=== PATIENT | female | born 1960 | race Caucasian/White ===

== ENCOUNTER 2021-09-08 12:52 | Inpatient (IN) | payer MEDICAID ==
[~2021-09-08] VITALS: Ht 165.1 cm; Wt 64.9 kg
[2021-09-08] MEDS: POTASSIUM CL. PREMIX PERIPHER. 50 ML IV SCH ×3 (02:35→23:43)
--- NOTE | 2021-09-08 12:52 | NUR ---
BIBS C/O OF RIGHT FOOT PAIN 10/10 ON PS. PT R FOOT IS SWOLLEN AND RED WITH A WATER BLISTER ON THE RIGHT SIDE. PT STATED SHE STEPED ON BROKEN GLASS X4DAYS AGO. PT VITALS ARE WITHIN NORMAL LIMITS. BREATHING IS REGULAR AND UNLABORED. PT ATTACHED TO INTERMODAL OWNER OPERATOR TRUCK DRIVER AND PULSE OX.
--- NOTE | 2021-09-08 13:41 | NUR ---
URINE SAMPLE COLLECTED AND SENT TO LAB
--- NOTE | 2021-09-08 13:49 | NUR ---
X RAY AT BEDSIDE
--- NOTE | 2021-09-08 13:49 | NUR ---
R HAND #22G S/L; PATENT AND INTACT. SWITCH CREW SUPERVISOR AT PT'S BEDSIDE
[2021-09-08 13:58] LABS: BILIRUBIN,URINE Negative (NEGATIVE); COLOR,URINE YELLOW (YELLOW); LEUKOCYTE ESTERASE ,URINE Negative (NEGATIVE); NITRITE, URINE Negative (NEGATIVE); PROTEIN,URINE Negative (NEGATIVE); UGLUCOSE Negative (NEGATIVE); UROBILINOGEN,URINE 0.2 EU/dL (0.2)
[2021-09-08 14:08] LABS: BACTERIA,URINE Rare /HPF (None Seen); RBC,URINE NONE SEEN /HPF (0-2); SQUAMOUS EPITHELIAL CELL,UR Few /HPF (None Seen); WBC,URINE NONE SEEN /HPF (0-3)
[2021-09-08 14:17] LABS: BASOPHILS # (AUTO) 0.1 K/uL (0.0-0.2); BASOPHILS % (AUTO) 1.3 % (0.0-2.0); EOSINOPHILS % (AUTO) 3.5 % (0.0-6.0); HEMATOCRIT 33 % (33-45); HEMOGLOBIN 11.5 g/dL (11.5-14.8); LYMPHOCYTES # (AUTO) 2.1 K/uL (0.8-4.8); LYMPHOCYTES % (AUTO) 24.4 % (20.0-44.0); MEAN CORPUSCULAR HGB CONC 34 g/dl (31.0-36.0); MEAN CORPUSCULAR VOLUME 87 fL (82-100); MONOCYTES # (AUTO) 0.9 K/uL (0.1-1.30); MONOCYTES % (AUTO) 10.1 % (2.0-12.0); NEUTROPHILS # (AUTO) 5.1 K/uL (1.8-8.9); NEUTROPHILS % (AUTO) 60.7 % (43.0-81.0); PLATELET COUNT (AUTO) 295 K/uL (150-450); RED BLOOD CELL COUNT(AUTO) 3.82 MIL/uL (4.0-5.2); WHITE BLOOD COUNT (AUTO) 8.5 K/uL (4.3-11.0)
[2021-09-08 14:30] LABS: CALCIUM, SERUM 8.8 mg/dL (8.5-10.1); CARBON DIOXIDE 27 mmol/L (21-32); CHLORIDE 102 mmol/L (98-107); CREATININE 0.6 mg/dL (0.6-1.3); GLUCOSE 89 mg/dL (74-106); POTASSIUM 2.9 mmol/L (3.5-5.1); SODIUM SERUM 139 mmol/L (136-145); UREA NITROGEN, BLOOD 10 mg/dL (7-18)
[2021-09-08 14:37] LABS: ALANINE AMINOTRANSFERASE 34 U/L (12-78); ALBUMIN 3.5 g/dL (3.4-5.0); ALKALINE PHOSPHATASE 72 U/L (46-116); ASPARTATE AMINOTRANSFERASE 33 U/L (15-37); BILIRUBIN,DIRECT 0.1 mg/dL (0.0-0.2); BILIRUBIN,TOTAL 0.3 mg/dL (0.2-1.0); TOTAL PROTEIN, SERUM 6.8 g/dL (6.4-8.2)
[2021-09-08] MEDS ORDERED: MORPHINE SULFATE INJ 4 MG/ML DISP.SYRIN ONE (14:59)
[2021-09-08] MEDS ORDERED: VANCOMYCIN 1 GM in IV D5W 250 ML IV ONE (15:00)
[2021-09-08] MEDS ORDERED: MORPHINE SULFATE INJ 2 MG/ML DISP.SYRIN IV ONE (15:00)
[2021-09-08] MEDS ORDERED: PIPERACILLIN /TAZOBACTAM 3.375 G in IV D5W 50 ML IV ONE (15:00)
[2021-09-08] MEDS ORDERED: CEFTRIAXONE 1 G in IV D5W 50 ML IV ONE (16:00)
[2021-09-08] MEDS ORDERED: MAGNESIUM HYDROXIDE 30 ML UDC PO PRN (16:30)
[2021-09-08] MEDS ORDERED: CEFTRIAXONE 1 G in IV D5W 50 ML IV SCH (16:30)
[2021-09-08] MEDS ORDERED: ONDANSETRON HCL/PF 4 MG/2 ML VIAL IVP PRN (16:30)
[2021-09-08] MEDS ORDERED: MAG HYDROX/AL HYDROX/SIMETH 30 ML UDC PO PRN (16:30)
[2021-09-08] MEDS ORDERED: ACETAMINOPHEN 325 MG TABLET PO PRN (16:30)
[2021-09-08] MEDS ORDERED: Z GUARD REMEDY 2 OZ OINT TP PRN (16:30)
--- NOTE | 2021-09-08 16:43 | NUR ---
NEW LINE ESTABLISHED 20G L FOOT AND CONVERSTED TO A SALINE LOCK
--- NOTE | 2021-09-08 16:45 | NUR ---
CALLED NURSING ZIG ZAG SPRING MACHINE OPERATOR FOR MIDLINE
--- NOTE | 2021-09-08 17:10 | NUR ---
MARITZA LindseyREPLACED BY [facility])
[2021-09-08] MEDS ORDERED: HYDROCODONE/APAP 5/325MG TABLET ONE ×2 (18:03→21:35)
[2021-09-08] MEDS ORDERED: ONDANSETRON HCL/PF 4 MG/2 ML VIAL ONE ×2 (18:11→21:42)
--- NOTE | 2021-09-08 18:11 | NUR ---
FOOD TRAY PROVIDED
--- NOTE | 2021-09-08 18:28 | NUR ---
Dav peraza in [facility] - 09/08/21 at 1857 by KERLINE TORSTEN GRANDE AT PT BEDSIDE
[2021-09-08] MEDS ORDERED: MORPHINE SULFATE INJ 2 MG/ML DISP.SYRIN IVP ONE (18:30)
--- NOTE | 2021-09-08 18:30 | NUR ---
NEW ORDERS PER FACILITY MAINTENANCE WORKER WILSETIN: URINE DRUG AND MORPHINE 1 MG IV PUSH ONCE. THE ORDERS ARE READ BACK, VERIFIED. NOTED AND CARRIED OUT.
[2021-09-08] MEDS ORDERED: MORPHINE SULFATE INJ 2 MG/ML DISP.SYRIN ONE (18:32)
--- NOTE | 2021-09-08 18:34 | NUR ---
TORSTEN GRANDE AT PT BEDSIDE
--- NOTE | 2021-09-08 18:59 | NUR ---
PT IS SLEEPING COMFORTABLY. VITALS WITHIN NORMAL LIMITS. BREATHING REGULAR AND UNLABORED.
--- NOTE | 2021-09-08 19:51 | NUR ---
PT PROVIDED BEDPAN
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
--- NOTE | 2021-09-08 22:25 | NUR ---
PT POWER OF RETAIL MANAGEMENT TRAINEE, DANETTE SALAS /
--- NOTE | 2021-09-08 23:04 | NUR ---
JOSE G , MIDLINE NURSE, AT BED SIDE FOR MID LINE INSERTION
--- NOTE | 2021-09-08 23:17 | NUR ---
MIDLINE ESTABLISHED RIGHT UPPER ARM.
--- NOTE | 2021-09-08 23:17 | NUR ---
Dav peraza in ED[facility] - 09/09/21 at 0033 by DESTINYO MIDLINE ESTABLISHED RIGHT UPPER ARM. POSTASSIUM CHLORIDE 10MEQ/50ML WAS GIVEN. MEDICAITON DELAYED DUE TO IV ACCESS
[2021-09-08] MEDS ORDERED: POTASSIUM CL. PREMIX PERIPHER. 50 ML ONE (23:25)
[2021-09-08] MEDS: HYDROCODONE/APAP 5/325MG TABLET PO PRN (23:45)
[2021-09-09] MEDS ORDERED: ACETAMINOPHEN 325 MG TABLET ONE (00:36)
[2021-09-09] MEDS ORDERED: MAG HYDROX/AL HYDROX/SIMETH 30 ML UDC ONE (00:43)
[2021-09-09] MEDS: IV NS 0.9% 1,000 ML IV PRN ×2 (00:45→06:13)
--- NOTE | 2021-09-09 00:45 | NUR ---
PT PROVIDED SHAZIAADRIA
[2021-09-09] MEDS ORDERED: MAGNESIUM HYDROXIDE 30 ML UDC ONE (00:53)
[2021-09-09] MEDS ORDERED: PANTOPRAZOLE 40 MG TABLET.DR PO ONE (00:54)
--- NOTE | 2021-09-09 01:04 | NUR ---
PT IS SLEEPING COMFORTABLY. BREATHING IS REGULAR AND UNLABORED. VITALS ARE WITHIN NORMAL LIMITS.
[2021-09-09] MEDS ORDERED: POTASSIUM CL. PREMIX PERIPHER. 50 ML ONE (01:13)
[2021-09-09] MEDS: POTASSIUM CL. PREMIX PERIPHER. 50 ML IV SCH (01:33)
[2021-09-09] MEDS ORDERED: POTASSIUM CL. PREMIX PERIPHER. 100 ML ONE (01:37)
[2021-09-09] MEDS ORDERED: METOCLOPRAMIDE HCL 10 MG/2 ML VIAL IV SCH (03:00)
[2021-09-09] MEDS ORDERED: VANCOMYCIN 1 GM VIAL ONE (03:08)
[2021-09-09] MEDS: VANCOMYCIN 1 GM in IV D5W 250 ML IV SCH ×2 (03:12→15:16)
--- NOTE | 2021-09-09 03:23 | NUR ---
REPORT GIVEN TO SARITA SIMON FOR BRIANNE BY SARITA ARREDONDO FOR BRIANNE.
[2021-09-09 03:28] VITALS: BP 113/77
--- NOTE | 2021-09-09 03:28 | NUR ---
PT IS BEING TRANSPORTED TO UNIT ON GURNEY WITH EMT AT BEDSIDE W/ ACLS PROTOCOL. NAD NOTED DURING TRANSPORT
--- NOTE | 2021-09-09 03:33 | NUR ---
PT WAS TRANSFERRED TO 320 IN STABLE CONDITION
[2021-09-09] MEDS: MORPHINE SULFATE INJ 2 MG/ML DISP.SYRIN IV PRN ×5 (03:59→20:41)
--- NOTE | 2021-09-09 03:59 | NUR ---
PT C/O 10/10 PAIN ON HER RIGHT FOOT. PER PT REQUEST MORPHINE 2MG/1ML Q4HR PRN ADMINISTERED AT THIS TIME PER ORDER. WILL CONTINUE TO MONITOR.
--- NOTE | 2021-09-09 06:30 | NUR ---
MS RN CLOSING NOTE PT REMAINED STABLE THROUGHOUT SHIFT. WILL ENDORSE TO ONCOMING RN FOR BRIANNE.
[2021-09-09 06:49] LABS: BASOPHILS # (AUTO) 0.1 K/uL (0.0-0.2); BASOPHILS % (AUTO) 1.3 % (0.0-2.0); EOSINOPHILS % (AUTO) 5.3 % (0.0-6.0); HEMATOCRIT 33 % (33-45); HEMOGLOBIN 11.4 g/dL (11.5-14.8); LYMPHOCYTES # (AUTO) 2.1 K/uL (0.8-4.8); MEAN CORPUSCULAR HGB CONC 35 g/dl (31.0-36.0); MEAN CORPUSCULAR VOLUME 87 fL (82-100); MONOCYTES # (AUTO) 0.6 K/uL (0.1-1.30); MONOCYTES % (AUTO) 8.4 % (2.0-12.0); NEUTROPHILS # (AUTO) 3.9 K/uL (1.8-8.9); PLATELET COUNT (AUTO) 296 K/uL (150-450); RED BLOOD CELL COUNT(AUTO) 3.78 MIL/uL (4.0-5.2); WHITE BLOOD COUNT (AUTO) 7.1 K/uL (4.3-11.0)
[2021-09-09 07:20] LABS: CALCIUM, SERUM 8.2 mg/dL (8.5-10.1); CREATININE 0.7 mg/dL (0.6-1.3); MAGNESIUM 2.6 mg/dL (1.8-2.4); PHOSPHORUS 2.9 mg/dL (2.5-4.9); POTASSIUM 3.2 mmol/L (3.5-5.1)
--- NOTE | 2021-09-09 07:25 | NUR ---
MS RN OPENING NOTES RECEIVED PATIENT IN BED, AWAKE, A/O X4, NOT IN ANY RESPIRATORY DISTRESS. PATIENT IS ASKING FOR HER NEXT PAIN MEDICATION DUE. EXPLAINED THE FREQUENCY AND THE SCALE OF HER PAIN,VERBALIZED UNDERSTANDING. MIDLINE ON THE BARBARA #22 WITH ON GOING NS AT 50ML/HR.,TOLERATED WELL. SAFETY MEASURES ENFORCED:REMINDED TO ALWAYS CALL FOR ASSISTANCE, BED LOCKED AND ON ITS LOWEST POSITION,SIDE RAILS UP X2 AND CALL LIGHT WITHIN REACH. WILL CONTINUE TO MONITOR.
[2021-09-09 07:52] LABS: THYROID STIMULATING HORMONE 2.441 uIU/mL (0.358-3.74)
[2021-09-09] MEDS: PANTOPRAZOLE 40 MG TABLET.DR PO SCH (08:16)
[2021-09-09 08:21] VITALS: BP 120/65
[2021-09-09] MEDS ORDERED: [UNRECOGNIZED DRUG - CODE] PO (09:04)
[2021-09-09] MEDS ORDERED: AMLO-212 PO (09:04)
[2021-09-09] MEDS ORDERED: DIAZ5TAB PO (09:04)
[2021-09-09] MEDS ORDERED: TEMA22.53 PO (09:04)
[2021-09-09] MEDS ORDERED: FURO-145 PO (09:04)
[2021-09-09] MEDS ORDERED: ASPI-1169 PO (09:04)
[2021-09-09] MEDS ORDERED: MULT-447 PO (09:04)
[2021-09-09] MEDS: POTASSIUM CHLORIDE 20 MEQ TAB.PRT.SR PO SCH ×2 (12:28→12:45)
--- NOTE | 2021-09-09 12:40 | NUR ---
RN NOTES MORPHINE SULFATE 2MG/ML GIVEN AT THIS TIME BUT UNABLE TO SAVE IN THE EMAR,CHARGE NURSE ASHLEY WAS AT MY SIDE WHO WITNESSED WHEN I GAVE THE MEDICATION.
[2021-09-09 16:27] VITALS: BP 125/81
--- NOTE | 2021-09-09 19:00 | NUR ---
MS RN OPENING NOTE RECEIVED PT AWAKE IN BED. A/OX4. NO SOB NOTED. NO S/S RESPIRATORY DISTRESS. PT IS AMBULATORY. PT HAS NO C/O PAIN AT THIS TIME. IV ACCESS IN RIGHT UPPER ARM MIDLINE, INFUSING NS @ 50ML/HR. IV IS INTACT, PATENT, AND FLUSHING WELL. SAFETY MEASURES MAINTAINED . BED IN LOWEST LOCKED POSITION, HOB ELEVATED, SIDE RAILS UP X2. CALL LIGHT AND TABLE WITHIN REACH. WILL CONTINUE WITH PLAN OF CARE.
--- NOTE | 2021-09-09 19:42 | NUR ---
MS RN CLOSING NOTES PATIENT IN BED, AWAKE, A/O X4, NOT IN ANY RESPIRATORY DISTRESS WITH EPISODES OF ANXIETY REGARDING HER PAIN MEDICATION. MIDLINE ON THE BARBARA #22 WITH ON GOING NS AT 50ML/HR.,TOLERATED WELL. SCHEDULED FOR WOUND DEBRIDEMENT TOMORROW WITH NPO ORDERED AFTER MIDNIGHT.PATIENT MADE AWARE.SAFETY MEASURES ENFORCED:REMINDED TO ALWAYS CALL FOR ASSISTANCE, BED LOCKED AND ON ITS LOWEST POSITION,SIDE RAILS UP X2 AND CALL LIGHT WITHIN REACH. WILL ENDORSE TO THE INCOMING SHIFT.
[2021-09-09 20:00] VITALS: BP 131/88
--- NOTE | 2021-09-09 20:41 | NUR ---
PT C/O 9/10 PAIN ON HER RIGHT FOOT. PER PT REQUEST MORPHINE 2MG/1ML Q4HR PRN ADMINISTERED AT THIS TIME PER ORDER. WILL CONTINUE TO MONITOR.
[2021-09-09] MEDS ORDERED: CEFTRIAXONE 1 G VIAL ONE ×2 (21:22→21:25)
[2021-09-09] MEDS: CEFTRIAXONE 2 G in IV D5W 100 ML IV SCH (21:40)
[2021-09-10] MEDS: MORPHINE SULFATE INJ 2 MG/ML DISP.SYRIN IV PRN ×6 (00:59→22:08)
--- NOTE | 2021-09-10 00:59 | NUR ---
PT C/O 9/10 PAIN ON HER RIGHT FOOT. PER PT REQUEST MORPHINE 2MG/1ML Q4HR PRN ADMINISTERED AT THIS TIME PER ORDER. WILL CONTINUE TO MONITOR.
[2021-09-10] MEDS: VANCOMYCIN 1 GM in IV D5W 250 ML IV SCH ×3 (03:14→15:21)
--- NOTE | 2021-09-10 05:30 | NUR ---
PT C/O 9/10 PAIN ON HER RIGHT FOOT. PER PT REQUEST MORPHINE 2MG/1ML Q4HR PRN ADMINISTERED AT THIS TIME PER ORDER. WILL CONTINUE TO MONITOR.
--- NOTE | 2021-09-10 06:30 | NUR ---
MS RN CLOSING NOTE PT REMAINED STABLE THROUGHOUT SHIFT. WILL ENDORSE TO ONCOMING NURSE FOR BRIANNE.
[2021-09-10] MEDS ORDERED: ANESTHESIA TRAY IN PYXIS 1 EA TRAY MC ONE (06:58)
[2021-09-10] MEDS ORDERED: BUPIVACAINE MPF W/EPI 0.25% 30 ML VIAL ONE (06:59)
[2021-09-10] MEDS ORDERED: FENTANYL PF 100MCG/2ML AMPUL ONE ×2 (07:05→08:43)
--- NOTE | 2021-09-10 07:05 | NUR ---
MS RN OPENING NOTE RECEIVED PT AWAKE IN BED. PATIENT IS A/OX4. PATIENT IS BREATHING EVENLY AND NONLABORED ON ROOM AIR. NO SOB NOTED. NO S/S RESPIRATORY DISTRESS. PT HAS NO C/O PAIN AT THIS TIME. IV ACCESS IN RIGHT UPPER ARM MIDLINE, INFUSING NS @ 50ML/HR. IV IS INTACT, PATENT, AND FLUSHING WELL. PATIENT IS LEAVING FOR PROCEDURE. SAFETY MEASURES MAINTAINED . BED IN LOWEST LOCKED POSITION, HOB ELEVATED, SIDE RAILS UP X2. CALL LIGHT AND TABLE WITHIN REACH. WILL CONTINUE TO MONITOR
[2021-09-10] MEDS ORDERED: MIDAZOLAM HCL 2 MG/2ML VIAL ONE (07:14)
[2021-09-10] MEDS: PANTOPRAZOLE 40 MG TABLET.DR PO SCH (07:22)
[2021-09-10 07:37] LABS: BASOPHILS # (AUTO) 0.1 K/uL (0.0-0.2); EOSINOPHILS % (AUTO) 4.2 % (0.0-6.0); HEMATOCRIT 32 % (33-45); HEMOGLOBIN 11.1 g/dL (11.5-14.8); LYMPHOCYTES # (AUTO) 2.2 K/uL (0.8-4.8); LYMPHOCYTES % (AUTO) 30.5 % (20.0-44.0); MEAN CORPUSCULAR HGB CONC 35 g/dl (31.0-36.0); MEAN CORPUSCULAR VOLUME 87 fL (82-100); MONOCYTES # (AUTO) 0.7 K/uL (0.1-1.30); MONOCYTES % (AUTO) 9.7 % (2.0-12.0); NEUTROPHILS % (AUTO) 54.6 % (43.0-81.0); PLATELET COUNT (AUTO) 271 K/uL (150-450); RED BLOOD CELL COUNT(AUTO) 3.69 MIL/uL (4.0-5.2); WHITE BLOOD COUNT (AUTO) 7.4 K/uL (4.3-11.0)
--- NOTE | 2021-09-10 07:55 | NUR ---
WOUND CARE CONSULT: RECEIVED CONSULT FOR RT FOOT. PT IN O.R. AT THIS TIME AND IS FOLLOWED BY DIGITAL ASSET MANAGER. WILL SEE PRN.
[2021-09-10 08:17] LABS: CALCIUM, SERUM 8.4 mg/dL (8.5-10.1); CREATININE 0.6 mg/dL (0.6-1.3); MAGNESIUM 2.4 mg/dL (1.8-2.4); PHOSPHORUS 2.8 mg/dL (2.5-4.9); POTASSIUM 4.2 mmol/L (3.5-5.1)
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
[2021-09-10] MEDS ORDERED: LIDOCAINE 0.5% HCL 50 ML VIAL ONE (08:47)
--- NOTE | 2021-09-10 09:24 | NUR ---
RN NOTE RECEIVED PATIENT BACK FROM PROCEDURE. DRESSING C/D/I. VITALS BP 133/78, HR 67, TEMP 97.7, RR 18 O2 97% ON ROOM AIR. PATIENT DENIES PAIN OR DISCOMFORT IN HAPPY SPIRITS. WILL CONTINUE TO MONITOR
--- NOTE | 2021-09-10 10:51 | NUR ---
RN NOTE PATIENT HAVING ANXIETY, COMPLAINING OF ANXIOUS FEELINGS, MD NOTIFIED TO GIVE ATIVAN 2MG X1 PO AND FOLLOW UP WITH DR RIDLEY., WILL NOTIFY .
[2021-09-10] MEDS ORDERED: LORAZEPAM 1 MG TABLET PO ONE (11:00)
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
--- NOTE | 2021-09-10 12:26 | NUR ---
RN NOTE PATIENT NOTED TO BE OUT OF BED, EXPLAINED TO PATIENT TO STAY IN BED, PATIENT NONCOMPLIANT. CONTINUES TO GET OOB UNASSISTED. PATIENT ASKED FOR PRN MEDICATION WILL GIVE MEDICATION ORDERED.
[2021-09-10] MEDS: HYDROCODONE/APAP 5/325MG TABLET PO PRN ×3 (12:29→20:46)
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
--- NOTE | 2021-09-10 14:18 | NUR ---
RN NOTE PATIENT NONCOMPLIANT WITH NONWEIGHT BEARING STATUS,
[2021-09-10 16:00] VITALS: BP 141/84
--- NOTE | 2021-09-10 16:06 | NUR ---
RN NOTE RECEIVED CALL FROM LAB, PATIENT HAS POSITIVE MRSA MD TO MADE AWARE WITH NEW ORDER FOR BACTROBAN. WILL CONTINUE TO MONITOR
--- NOTE | 2021-09-10 17:16 | NUR ---
RN NOTE PATIENT ASKING FOR HER PHONE TO BE CHARGED, COULD NOT FIND SERVICE UNIT OPERATOR, 2 RNS PRESENT TO GO THROUGH BELONGINGS, FOUND THE METAL DINNER TRAY WRAPPED IN CLOTHING, REMOVED ITEM AND GAVE BACK TO KITCHEN SHE ASKED TO SPEAK WITH CHARGE NURSE. CHARGE CAME AND EXPLAINED SAFETY CONCERNS. PATIENT VERBALIZED UNDERSTANDING AND STARTED TO DISCUSS [facility]. PATIENT CONTINUES TO BE NONCOMPLIANT ON STAYING IN BED AND OTHER CARE CONCERNS.
--- NOTE | 2021-09-10 17:25 | NUR ---
RN NOTE PATIENT SCREAMING IN HALLWAY ASKED WHAT SHE NEEDED, SCREAMED NOTHING AND THAT NO ONE SHOULD COME TO HER ROOM BUT DOCTORS, CHARGE AWARE, WILL CONTINUE TO MONITOR
[2021-09-10] MEDS ORDERED: OLANZAPINE 10 MG VIAL IM PRN (17:30)
--- NOTE | 2021-09-10 17:30 | NUR ---
RN NOTE MD NOTIFIED OF BEHAVIOR ORDERED ZYPREXA 5MG IM PRN FOR SEVERE AGITATION
--- NOTE | 2021-09-10 18:23 | NUR ---
MS RN CLOSING NOTE PT AWAKE IN BED. PATIENT IS A/OX4. PATIENT IS BREATHING EVENLY AND NONLABORED ON ROOM AIR. NO SOB NOTED. NO S/S RESPIRATORY DISTRESS. PT HAS NO C/O PAIN AT THIS TIME, BUT COMPLAINED OF SEVERE RIGHT FOOT PAIN DURING SHIFT, PRN MEDICATION GIVEN ORDERED, VITALS MAINTAINED WNL. IV ACCESS IN RIGHT UPPER ARM MIDLINE, INFUSING NS @ 50ML/HR. IV IS INTACT, PATENT, AND FLUSHING WELL. PATIENT HAS BEEN AGGRESSIVE AND NONCOMPLIANT THROUGHOUT SHIFT, DOES NOT USE CALL LIGHT GETS UP EVEN THOUGH REMINDED TO USE CALL LIGHT AND THAT IT IS UNSAFE TO PLACE WEIGHT ON FOOT POST PROCEDURE. MD AWARE, CHARGE NOTIFIED. ALL MEDICATIONS WERE GIVEN ORDERED. SAFETY MEASURES MAINTAINED . BED IN LOWEST LOCKED POSITION, HOB ELEVATED, SIDE RAILS UP X2. CALL LIGHT AND TABLE WITHIN REACH. WILL ENDORSE TO ONCOMING SHIFT
--- NOTE | 2021-09-10 19:00 | NUR ---
MS RN OPENING NOTE RECEIVED PT AWAKE IN BED. A/OX4. NO SOB NOTED. NO S/S RESPIRATORY DISTRESS. PT IS BEDREST. PT HAS NO C/O PAIN AT THIS TIME. IV ACCESS IN RIGHT UPPER ARM MIDLINE. IV IS INTACT, PATENT, AND FLUSHING WELL. SAFETY MEASURES MAINTAINED . BED IN LOWEST LOCKED POSITION, HOB ELEVATED, SIDE RAILS UP X2. CALL LIGHT AND TABLE WITHIN REACH. WILL CONTINUE WITH PLAN OF CARE.
[2021-09-10 20:00] VITALS: BP 147/73
--- NOTE | 2021-09-10 20:46 | NUR ---
PT C/O 9/10 PAIN ON HER RIGHT FOOT. PER PT REQUEST NORCO 5-325MG 1 TAB PO Q4HR PRN ADMINISTERED AT THIS TIME PER ORDER. WILL CONTINUE TO MONITOR.
[2021-09-10] MEDS: LORAZEPAM 0.5 MG TABLET PO PRN (21:51)
--- NOTE | 2021-09-10 21:51 | NUR ---
PT EXTREMELY ANXIOUS, YELLING AND WALKING AROUND THE HALLWAY, PER NURSING ASSESSMENT. PT REQUESTED MEDICATION FOR ANXIETY. ATIVAN 0.5MG I TAB PO Q6HR PRN ADMINISTERED AT THIS TIME FOR ANXIETY. WILL CONTINUE TO MONITOR
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
[2021-09-10] MEDS: MUPIROCIN OINT 2% 22 GM TUBE NS SCH (21:57)
[2021-09-10] MEDS: CEFTRIAXONE 2 G in IV D5W 100 ML IV SCH (21:57)
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
--- NOTE | 2021-09-10 23:00 | NUR ---
PT IS UNCOOPERATIVE, RUE, YELLING AND DEMANDING FOR PAIN MEDICATION. TALKED CALMLY TO THE PT BUT SHE IS UNCOOPERATIVE,AND THREATENING TO CALL THE MINK FARMER. EXPLAINED TO THE PT ON THE RISKS OF WALKING AROUND AFTER SURGERY. THE RIGHT LEG IS SWOLLEN AND NEEDS TO BE ELEVATED BUT PT REMAINS UNCOOPERATIVE. CHARGE NURSE, ESTELA MADE AWARE, SHE EXPLAINED THE IMPORTANCE OF ELEVATING THE LEGS BUT PT REMAINED UNCOOPERATIVE.
--- NOTE | 2021-09-11 01:30 | NUR ---
PT IN THE NURSES STATION DEMANDING FOR BOTH NORCO AND MORPHINE AT THE SAME TIME. CHARGE NURSE ESTELA AND I EXPLAINED TO HER THAT SHE CANNOT HAVE BOTH AT THE SAME TIME, IT WOULD BE ALTERNATED WHEN THE TIME FOR EACH MEDICATION IS DUE BUT PT KEPT INSISTING, YELLING AND THREATENING TO CALL 911.
--- NOTE | 2021-09-11 01:50 | NUR ---
PT COMPLAINED THAT HER MARIJUANA STICK WAS MISSING. ASKED HER IF SHE HAS MARIJUANA SHE ADMITTED TO HAVING MARIJUANA STATING THAT IT IS LEGAL. I ADVISED HER THAT IT IS NOT ACCEPTABLE TO BE USED IN THE HOSPITAL, COLLECTED THE MARIJUANA WHICH WAS KEPT IN A SMALL BOWL OF POWDERED TURMERIC. BAGGED THE MARIJUANA AND PRESENTED TO THE CHARGE NURSE, ESTELA. WILL CONTINUE WITH PLAN OF CARE.
[2021-09-11] MEDS: MORPHINE SULFATE INJ 2 MG/ML DISP.SYRIN IV PRN ×6 (02:15→21:14)
--- NOTE | 2021-09-11 02:15 | NUR ---
TWO CHAR CONVEYOR TENDER WALKED INTO THE ROOM WHILE I WAS ADMINISTERING MORPHINE TO THE PT. PT WAS LEFT ALONE WITH THE 2 POLICE OFFICERS. CHARGE NURSE AND, ESTELA AND NURSING BATH MIX OPERATOR, TEMO IRVING.
--- NOTE | 2021-09-11 02:15 | NUR ---
PT C/O 9/10 PAIN ON HER RIGHT FOOT. PER PT REQUEST MORPHINE 2MG/1ML Q4HR PRN ADMINISTERED AT THIS TIME PER ORDER. WILL CONTINUE TO MONITOR.
[2021-09-11] MEDS: HYDROCODONE/APAP 5/325MG TABLET PO PRN ×4 (02:51→19:58)
[2021-09-11] MEDS: VANCOMYCIN 1 GM in IV D5W 250 ML IV SCH ×2 (03:45→15:51)
[2021-09-11] MEDS: IV NS 0.9% 1,000 ML IV PRN (04:01)
--- NOTE | 2021-09-11 06:30 | NUR ---
MS RN CLOSING NOTE PT IN BED AT THIS TIME. AWAKE WILL ENDORSE TO ONCOMING RN FOR BRIANNE.
[2021-09-11 07:08] LABS: BASOPHILS % (AUTO) 0.5 % (0.0-2.0); EOSINOPHILS % (AUTO) 0.8 % (0.0-6.0); HEMATOCRIT 32 % (33-45); HEMOGLOBIN 10.8 g/dL (11.5-14.8); LYMPHOCYTES # (AUTO) 2.3 K/uL (0.8-4.8); LYMPHOCYTES % (AUTO) 24.1 % (20.0-44.0); MEAN CORPUSCULAR HGB CONC 34 g/dl (31.0-36.0); MEAN CORPUSCULAR VOLUME 88 fL (82-100); MONOCYTES % (AUTO) 10.8 % (2.0-12.0); NEUTROPHILS # (AUTO) 6.2 K/uL (1.8-8.9); NEUTROPHILS % (AUTO) 63.8 % (43.0-81.0); PLATELET COUNT (AUTO) 304 K/uL (150-450); RED BLOOD CELL COUNT(AUTO) 3.61 MIL/uL (4.0-5.2); WHITE BLOOD COUNT (AUTO) 9.7 K/uL (4.3-11.0)
[2021-09-11 07:20] LABS: CALCIUM, SERUM 8.9 mg/dL (8.5-10.1); CREATININE 0.8 mg/dL (0.6-1.3); MAGNESIUM 2.3 mg/dL (1.8-2.4); PHOSPHORUS 3.5 mg/dL (2.5-4.9); POTASSIUM 4.1 mmol/L (3.5-5.1)
--- NOTE | 2021-09-11 07:20 | NUR ---
PT C/O 9/10 PAIN ON HER RIGHT FOOT. PER PT REQUEST MORPHINE 2MG/1ML Q4HR PRN ADMINISTERED AT THIS TIME PER ORDER. WILL CONTINUE TO MONITOR.
[2021-09-11] MEDS: PANTOPRAZOLE 40 MG TABLET.DR PO SCH (07:52)
[2021-09-11] MEDS: LORAZEPAM 0.5 MG TABLET PO PRN ×2 (07:52→18:32)
[2021-09-11 08:00] VITALS: BP 140/90
--- NOTE | 2021-09-11 08:27 | NUR ---
RN OPENING NOTES PT AWAKE, A/0X4, NO SOB, NO RR DISTRESS, WALKING BACK AND FORTH ON UNIT WILSON, RIGHT FOOT WRAPPED, NOTED SWOLLEN TOES, RIGHT UPPER ARM IV ACCESS NOTED, NS RUNNING AT 50ML/HR, NO SWELLING OR INFILTRATION NOTED, IV ACCESS IS PATENT AND RUNNING, PT DEMANDED PAIN MEDS, ESCORTED PT BACK TO ROOM, CALL LIGHT WITHIN REACH, BED LOCKED AND IN LOWEST POSITION, SAFETY PRECAUTIONS MET.
[2021-09-11] MEDS: MUPIROCIN OINT 2% 22 GM TUBE NS SCH ×3 (08:38→20:05)
[2021-09-11] MEDS ORDERED: diphenhydrAMINE HCL ELIX 25 MG/10 ML UDC PO PRN (14:00)
--- NOTE | 2021-09-11 14:00 | NUR ---
RN MS NOTES PT SEEN AND EXAMINED BY DR. RAMOS, PLAN OF CARE DISCUSSED WITH PT, VERBALIZED UNDERSTANDING.
[2021-09-11 16:00] VITALS: BP 144/75
--- NOTE | 2021-09-11 19:03 | NUR ---
RN MS NOTES PT AWAKE, ALERT AND ORIENTED, CALM AND COOPERATIVE AT THIS TIME, WEARS CAM BOOT WHEN AMBULATING AT THE HALLWAY, PT EDUCATION PROVIDED REGARDING NON WEIGHT BEARING STATUS AT RIGHT FOOT, PT STILL AMBULATES AND BEARS WEIGHT ON IT, INSTRUCTED PT TO ELEVATE RIGHT FOOT, COMPLIANT AT TIMES BUT FREQUENTLY WALKS ALONG THE HALLWAY WITH A WALKER, PT ALSO KEEP ON UNDRESSING AND DRESSING THE GALI WRAP.
--- NOTE | 2021-09-11 19:19 | NUR ---
RN CLOSING NOTES PT A/OX4, NO SOB, NO RR DISTRESS, PT VERBALIZED UNDERSTANDING OF NO WEIGHT BARING, TO KEEP FOOT ELEVATED, PT AMBULATING WITH WALKER, PRN PAIN MEDS GIVEN WHEN NEEDED, SCHEDULED MEDS ADMINISTERED ORDERED, BEDSIDE COMMODE PROVIDED, CALL LIGHT WITHIN REACH, BED LOWER AND LOCKED, SAFETY PRECAUTIONS MET.
--- NOTE | 2021-09-11 19:39 | NUR ---
Patient is A&Ox4. Seen walking in room, reminded pt. NWB to R foot. and elevate when back in bed. Pt. reports 6/10 pain to R foot will medicate with PRN [place] as per MD order. ALEX midline intact and patent. Will continue to monitor patient.
[2021-09-11 20:00] VITALS: BP 160/80
[2021-09-11] MEDS: CEFTRIAXONE 2 G in IV D5W 100 ML IV SCH (20:05)
[2021-09-11] MEDS ORDERED: diphenhydrAMINE HCL 25 MG CAPSULE PO PRN (21:30)
[2021-09-12] MEDS: MORPHINE SULFATE INJ 2 MG/ML DISP.SYRIN IV PRN (01:15)
[2021-09-12] MEDS: HYDROCODONE/APAP 5/325MG TABLET PO PRN ×3 (02:14→17:06)
[2021-09-12] MEDS: VANCOMYCIN 1 GM in IV D5W 250 ML IV SCH ×2 (02:29→15:00)
--- NOTE | 2021-09-12 06:02 | NUR ---
Overnight pt. c/o moderate to severe pain to R foot managed by PRN Morphine and Ekron. Has been A&Ox4 while awake. Slept approximately 6 hours. Patient was cooperative with care but often made paranoid comments and had disorganized thought process. No adverse reactions to IV ABX, tolerating well. Is currently resting but easy to wake -no s/s of distress noted. Patient up and walking but constantly reminded she is NWB to R foot.
[2021-09-12] MEDS: MORPHINE SULFATE INJ 4 MG/ML DISP.SYRIN IV PRN ×2 (06:29→13:26)
[2021-09-12] MEDS: IV NS 0.9% 1,000 ML IV PRN (06:29)
[2021-09-12 06:41] LABS: BASOPHILS # (AUTO) 0.1 K/uL (0.0-0.2); BASOPHILS % (AUTO) 1.3 % (0.0-2.0); EOSINOPHILS % (AUTO) 2.9 % (0.0-6.0); HEMATOCRIT 33 % (33-45); HEMOGLOBIN 11.4 g/dL (11.5-14.8); MEAN CORPUSCULAR HGB CONC 34 g/dl (31.0-36.0); MEAN CORPUSCULAR VOLUME 88 fL (82-100); MONOCYTES # (AUTO) 0.7 K/uL (0.1-1.30); MONOCYTES % (AUTO) 7.6 % (2.0-12.0); NEUTROPHILS # (AUTO) 5.3 K/uL (1.8-8.9); NEUTROPHILS % (AUTO) 56.2 % (43.0-81.0); PLATELET COUNT (AUTO) 292 K/uL (150-450); RED BLOOD CELL COUNT(AUTO) 3.77 MIL/uL (4.0-5.2); WHITE BLOOD COUNT (AUTO) 9.4 K/uL (4.3-11.0)
[2021-09-12 06:56] LABS: ALBUMIN 3.3 g/dL (3.4-5.0); BILIRUBIN,TOTAL 0.1 mg/dL (0.2-1.0); CALCIUM, SERUM 8.6 mg/dL (8.5-10.1); CREATININE 0.8 mg/dL (0.6-1.3); MAGNESIUM 2.2 mg/dL (1.8-2.4); PHOSPHORUS 4.4 mg/dL (2.5-4.9); POTASSIUM 4.4 mmol/L (3.5-5.1); TOTAL PROTEIN, SERUM 6.6 g/dL (6.4-8.2)
--- NOTE | 2021-09-12 07:59 | NUR ---
MS RN OPENING NOTES RECEIVED Pt AWAKE IN BED A/0X4, NO SOB, BREATHING IS EVEN AND UNLABORED ON ROOM AIR. NO COMPLAINTS OF PAIN MADE AT THIS TIME. RIGHT FOOT WRAPPED, SWOLLEN TOES. IV ACCESS ON RIGHT UPPER ARM AND NS RUNNING AT 50ML/HR, IV ACCESS IS PATENT AND INTACT. SAFETY MEASURES IN PLACE: BED IS LOCKED AND IN LOWEST POSITION, CALL LIGHT AND BEDSIDE TABLE ARE WITHIN REACH. 2 X SIDE RAILS UP. WILL CONTINUE TO MONITOR THROUGHOUT THE SHIFT.
[2021-09-12 08:00] VITALS: BP 131/69
[2021-09-12] MEDS: PANTOPRAZOLE 40 MG TABLET.DR PO SCH (08:26)
[2021-09-12] MEDS: MUPIROCIN OINT 2% 22 GM TUBE NS SCH (08:38)
[2021-09-12] MEDS ORDERED: THERAHONEY GEL 1.5 OZ TUBE TP SCH (09:00)
[2021-09-12] MEDS: LORAZEPAM 0.5 MG TABLET PO PRN ×2 (09:19→18:49)
[2021-09-12] MEDS ORDERED: CEPH250S PO (13:57)
[2021-09-12] MEDS ORDERED: SULF1TAB48 PO (13:57)
[2021-09-12 15:52] VITALS: BP 139/93
--- NOTE | 2021-09-12 19:01 | NUR ---
RN MS CLOSING NOTES Pt IS A/OX4, NO SOB, OR RESPIRATORY DISTRESS NOTED, Pt VERBALIZED UNDERSTANDING OF NO WEIGHT BARING, TO KEEP FOOT ELEVATED, Pt AMBULATING WITH WALKER. PRN PAIN MEDS GIVEN WHEN NEEDED PO, Pt IS BEING DISCHARGED AND AWAITING TO BE PICKED UP BY FAMILY. NO IV AT THE MOMENT DUE TO DISCHARGE, ALL MEDS GIVEN PO. Pt IS STABLE WITH NO PAIN AT THIS TIME. SAFETY MEASURES KEPT IN PLACE, BED IS LOCKED AND IN LOWEST POSITION, CALL LIGHT AND BEDSIDE TABLE ARE WITHIN REACH, SIDE RAILS UP X2, WILL ENDORSE TO ONCOMING SHIFT.
--- NOTE | 2021-09-12 19:30 | NUR ---
MS RN NOTES RECEIVED WALKING AROUND WITH WALKER,DISCHARGE ALREADY,WAITING TO BE MEAL COOKER TO HOME BY RELATIVES.ALL PAPER WORKS WITH THE PATIENT.SALINE LOCK REMOVED BY DAY NURSE.RIGHT FOOT DRESSING INTACT AND DRY,SECURED BY SHAW SHOE.
--- NOTE | 2021-09-12 20:49 | NUR ---
MS RN NOTES DISCHARGE TO HOME,TECHNICAL INFORMATION SPECIALIST BY FAMILY MEMBERS AT 2039 IN STABLE CONDITION.
== END 2021-09-12 20:40 | disposition home or self-care (01) | DRG 383 ==
LOC: ER 13:37 → TRANSITION 17:52 → MED 20:45 → TRANSITION 21:25 → MED 09-09 03:20
PROVIDERS: ADMIT Registered Nurse
PROC: 05H933Z Insertion of Infusion Device into Right Brachial Vein, Percutaneous Approach (ICD-10-PCS; 2021-09-09)
PROC: 0JBQ0ZZ Excision of Right Foot Subcutaneous Tissue and Fascia, Open Approach (ICD-10-PCS; principal; 2021-09-10)
DX: L03.115 Cellulitis of right lower limb (principal); F25.0 Schizoaffective disorder, bipolar type; F29 Unspecified psychosis not due to a substance or known physiological condition; S92.324A Nondisplaced fracture of second metatarsal bone, right foot, initial encounter for closed fracture; E87.6 Hypokalemia; F90.9 Attention-deficit hyperactivity disorder, unspecified type; F43.10 Post-traumatic stress disorder, unspecified; X58.XXXA Exposure to other specified factors, initial encounter; Y92.9 Unspecified place or not applicable; I10 Essential (primary) hypertension; Z88.2 Allergy status to sulfonamides; F12.90 Cannabis use, unspecified, uncomplicated; F17.200 Nicotine dependence, unspecified, uncomplicated; W25.XXXA Contact with sharp glass, initial encounter; S91.331A Puncture wound without foreign body, right foot, initial encounter; Z22.322 Carrier or suspected carrier of Methicillin resistant Staphylococcus aureus; F41.9 Anxiety disorder, unspecified; F32.9 Major depressive disorder, single episode, unspecified
CPT/HCPCS: 36415; 71045-TC; 73630-TC; 73700-TC; 80048-TC; 80053-TC; 80061-TC; 80076-TC; 80202-TC; 81001; 83605-TC; 83735-TC; 84100-TC; 84443-TC; 84484-TC; 85025-TC; 85652-TC; 85730-TC; 86140-TC; 86803; 87040-TC; 87070-TC; 87081-TC; 87086-TC; 87806; 97116-TC; 97530-TC; A4217; A6253; A6403; C9803; G0378; J0696; J2250; J2270; J2405; J2543; J3010; J3370; J3480; J3490; J7030; J7060; Q0163

== ENCOUNTER 2022-01-07 13:33 | Inpatient (IN) | payer MEDICAID ==
[~2022-01-07] VITALS: Ht 162.6 cm; Wt 68.9 kg
[~2022-01-07 13:33] MED LIST: AMLO-212 PO; ASPI-1169 PO; CEPH250S PO; DIAZ5TAB PO; FURO-145 PO; MULT-447 PO; SULF1TAB48 PO; TEMA22.53 PO; [UNRECOGNIZED DRUG - CODE] PO
--- NOTE | 2022-01-07 13:52 | NUR ---
TO ER BED 9 FOR MD PADILLA,EKG ORDERED PER PROTOCOL,MONITORED
--- NOTE | 2022-01-07 13:55 | NUR ---
BIBS C/O ABDOMINAL PAIN X3 DAYS. PT VOMITTING UPON ARRIVAL. ATTACHED TO MONITOR. CHANGED INTO HOSPITAL GOWN. WARM BLANKET PROVIDED FOR COMFORT.
--- NOTE | 2022-01-07 14:10 | NUR ---
URINE COLLECTED AND SENT
[2022-01-07] MEDS ORDERED: IV NS 0.9% 1,000 ML BAG IV ONE ×2 (14:30→17:00)
[2022-01-07] MEDS ORDERED: ONDANSETRON HCL/PF 4 MG/2 ML VIAL IVP ONE ×2 (14:30→17:00)
[2022-01-07] MEDS ORDERED: MORPHINE SULFATE INJ 2 MG/ML DISP.SYRIN IV ONE ×2 (14:30→21:00)
[2022-01-07] MEDS ORDERED: ONDANSETRON HCL/PF 4 MG/2 ML VIAL ONE ×2 (14:39→17:10)
[2022-01-07] MEDS ORDERED: MORPHINE SULFATE INJ 4 MG/ML DISP.SYRIN ONE (14:39)
--- NOTE | 2022-01-07 14:40 | NUR ---
IV ESTABLIHSED R UPPER ARM 20G. LABS DRAWN AND COLLECTED. CONVERTED TO SALINE LOCK.
[2022-01-07 15:03] LABS: BASOPHILS # (AUTO) 0.1 K/uL (0.0-0.2); BASOPHILS % (AUTO) 0.3 % (0.0-2.0); EOSINOPHILS % (AUTO) 0.2 % (0.0-6.0); HEMATOCRIT 44 % (33-45); HEMOGLOBIN 14.3 g/dL (11.5-14.8); LYMPHOCYTES # (AUTO) 2.7 K/uL (0.8-4.8); LYMPHOCYTES % (AUTO) 12.9 % (20.0-44.0); MEAN CORPUSCULAR HGB CONC 33 g/dl (31.0-36.0); MEAN CORPUSCULAR VOLUME 81 fL (82-100); MONOCYTES # (AUTO) 1.7 K/uL (0.1-1.30); MONOCYTES % (AUTO) 7.8 % (2.0-12.0); NEUTROPHILS # (AUTO) 16.6 K/uL (1.8-8.9); NEUTROPHILS % (AUTO) 78.8 % (43.0-81.0); PLATELET COUNT (AUTO) 480 K/uL (150-450); RED BLOOD CELL COUNT(AUTO) 5.43 MIL/uL (4.0-5.2); WHITE BLOOD COUNT (AUTO) 21.1 K/uL (4.3-11.0)
[2022-01-07 15:34] LABS: ALANINE AMINOTRANSFERASE 18 U/L (12-78); ALBUMIN 4.6 g/dL (3.4-5.0); ALKALINE PHOSPHATASE 162 U/L (46-116); ASPARTATE AMINOTRANSFERASE 18 U/L (15-37); BILIRUBIN,DIRECT 0.1 mg/dL (0.0-0.2); BILIRUBIN,TOTAL 0.4 mg/dL (0.2-1.0); CALCIUM, SERUM 10.5 mg/dL (8.5-10.1); CARBON DIOXIDE 31 mmol/L (21-32); CHLORIDE 96 mmol/L (98-107); CREATININE 1.2 mg/dL (0.6-1.3); GLUCOSE 152 mg/dL (74-106); LIPASE 65 U/L (73-393); POTASSIUM 3.2 mmol/L (3.5-5.1); SODIUM SERUM 138 mmol/L (136-145); TOTAL PROTEIN, SERUM 8.9 g/dL (6.4-8.2); UREA NITROGEN, BLOOD 25 mg/dL (7-18)
[2022-01-07 15:42] LABS: BILIRUBIN,URINE NEGATIVE (NEGATIVE); COLOR,URINE YELLOW (YELLOW); LEUKOCYTE ESTERASE ,URINE NEGATIVE (NEGATIVE); NITRITE, URINE NEGATIVE (NEGATIVE); PROTEIN,URINE 30 mg/dl (NEGATIVE); UGLUCOSE 100 MG/DL mg/dL (NEGATIVE); UROBILINOGEN,URINE 0.2 EU/dL (0.2)
[2022-01-07] MEDS ORDERED: KETOROLAC TROMETHAMINE 15 MG/ML VIAL ONE (15:57)
[2022-01-07] MEDS ORDERED: KETOROLAC TROMETHAMINE INJ 30 MG/ML VIAL IV ONE (16:00)
[2022-01-07 16:25] LABS: RBC,URINE 0-2 /HPF (0-2); WBC,URINE 0-2 /HPF (0-3)
[2022-01-07 16:26] LABS: BACTERIA,URINE MANY /HPF (None Seen); CALCIUM CARBONATE CRYSTALS,UR None Seen /HPF (None Seen); CALCIUM OXALATE CRYSTALS,UR None Seen /HPF (None Seen); CALCIUM PHOSPHATE CRYSTALS,UR NN /HPF (None Seen); COARSE GRANULAR CASTS,URINE None Seen /LPF (None Seen); CYSTINE CRYSTALS,URINE None Seen /HPF (None Seen); FATTY CASTS,URINE None Seen /LPF (None Seen); FINE GRANULAR CASTS,URINE None Seen /LPF (None Seen); HYALINE CASTS, URINE None Seen /LPF (None Seen); MUCUS,URINE None Seen /LPF (None Seen); OTHER CRYSTALS,URINE None Seen /HPF (None Seen); RED BLOOD CELL CASTS,URINE None Seen /LPF (None Seen); SPERM,URINE None Seen /HPF (None Seen); SQUAMOUS EPITHELIAL CELL,UR MOD /HPF (None Seen); TRICHOMONAS,URINE None Seen /HPF (None Seen); TRIPLE PHOSPHATE CRYSTAL,UR None Seen /HPF (None Seen); TYROSINE CRYSTAL,URINE None seen /HPF (None Seen); URIC ACID CRYSTALS,URINE None Seen /HPF (None Seen); URINE AMORPHOUS PHOSPHATES None Seen /HPF (None Seen); URINE AMORPHOUS URATE None Seen /HPF (None Seen); WAXY CASTS,URINE None Seen /LPF (None Seen); YEAST,URINE None Seen /HPF (None Seen)
[2022-01-07] MEDS ORDERED: PANTOPRAZOLE 40 MG VIAL IV ONE (17:00)
[2022-01-07] MEDS ORDERED: PANTOPRAZOLE 40 MG VIAL ONE (17:10)
--- NOTE | 2022-01-07 17:26 | NUR ---
COVID TEST COLLECTED AND SENT
[2022-01-07] MEDS ORDERED: ZOLP5TAB2 PO (17:29)
[2022-01-07] MEDS ORDERED: HYDR-4303 PO (17:29)
--- NOTE | 2022-01-07 17:31 | NUR ---
[facility] patient observation assistant - Dr. Matthews via exchange
--- NOTE | 2022-01-07 17:34 | NUR ---
called nursing up regarding pt bed
[2022-01-07] MEDS ORDERED: MAG HYDROX/AL HYDROX/SIMETH 30 ML UDC PO PRN (19:30)
[2022-01-07] MEDS ORDERED: Z GUARD REMEDY 4 OZ OINT TP PRN (19:30)
[2022-01-07] MEDS ORDERED: ACETAMINOPHEN 325 MG TABLET PO PRN (19:30)
[2022-01-07] MEDS ORDERED: HYDROCODONE/APAP 5/325MG TABLET PO PRN (19:30)
[2022-01-07] MEDS ORDERED: MAGNESIUM HYDROXIDE 30 ML UDC PO PRN (19:30)
--- NOTE | 2022-01-07 19:38 | NUR ---
report given to laura for bhargav
--- NOTE | 2022-01-07 20:02 | NUR ---
TRANSFERRED TO THIRD FLOOR IN STABLE CONDTITION
[2022-01-07 20:05] VITALS: BP 162/92
[2022-01-07 20:10] VITALS: BP 164/91
--- NOTE | 2022-01-07 20:10 | NUR ---
MS RN NOTES PT RECEIVED IN BED A/0 X4 ABLE OT MAKE NEEDS KNOWN NO RESPIRATORY DISTRESS NOTED AT THIS TIME TOLERATING ROOM AIR. PT IS REPORTING ABDOMINAL PAIN 9/10 PER PT SHE CAME IN THE THE HOSPITAL FOR ABDOMINAL PAIN AND N/V FOR THE PAST WEEK ' I HAVE NOT BEEN ABLE TO KEEP ANYTHING DOWN" PT ABDOMEN NOTED WITH SOME DISTENTION. PT KEPT NPO FOR NOW. SPOKE TO DR KIDD AND RECEIVED ORDER FOR MORPHINE 1MG ONE TIME DOSE WILL ADMINISTER. PT BELONGINGS CHECKED PT ORIENTED TO UNIT AND ROOM. CALL LIGHT WITHIN REACH. TABLE WITHIN REACH. WILL CONTINUE TO MONITOR.
--- NOTE | 2022-01-07 20:57 | NUR ---
MS RN NOTES PT ONE TIME DOSE OF MORPHINE 1MG GIVEN TO PT ORDERED BY DR KIDD. TOLERATED WELL. WILL CONTINUE TO MONITOR.
[2022-01-08] VITALS (7 sets, daily range): BP systolic 147–174; BP diastolic 93–103
[2022-01-08] MEDS ORDERED: MORPHINE SULFATE INJ 2 MG/ML DISP.SYRIN IV PRN ×2 (00:30→03:00)
--- NOTE | 2022-01-08 00:34 | NUR ---
MS RN NOTES PT REPORTING ABDOMINAL PAIN 07/[address] KIDD MADE AWARE. NEW ORDER TO MAKE PT NPO AND ANOTHER DOSE OF MORPHINE 1MG IV PSUH. WILL CONTINUE TO MONITOR PT.
[2022-01-08] MEDS: IV NS 0.9% 1,000 ML IV PRN ×2 (02:36→19:01)
--- NOTE | 2022-01-08 05:34 | NUR ---
MS RN NOTES PRN MORPHINE GIVEN FOR PAIN TOLERATED WELL. WILL OCNTINUE TO MONITOR.
[2022-01-08 06:19] LABS: ALBUMIN 3.5 g/dL (3.4-5.0); BILIRUBIN,DIRECT 0.1 mg/dL (0.0-0.2); BILIRUBIN,TOTAL 0.5 mg/dL (0.2-1.0); CALCIUM, SERUM 8.5 mg/dL (8.5-10.1); CREATININE 0.7 mg/dL (0.6-1.3); MAGNESIUM 2.1 mg/dL (1.8-2.4); PHOSPHORUS 2.6 mg/dL (2.5-4.9); POTASSIUM 3.4 mmol/L (3.5-5.1)
[2022-01-08 06:51] LABS: BASOPHILS # (AUTO) 0.1 K/uL (0.0-0.2); BASOPHILS % (AUTO) 0.5 % (0.0-2.0); EOSINOPHILS % (AUTO) 1.7 % (0.0-6.0); HEMATOCRIT 39 % (33-45); HEMOGLOBIN 12.7 g/dL (11.5-14.8); LYMPHOCYTES # (AUTO) 2.6 K/uL (0.8-4.8); MEAN CORPUSCULAR HGB CONC 33 g/dl (31.0-36.0); MEAN CORPUSCULAR VOLUME 82 fL (82-100); MONOCYTES # (AUTO) 1.6 K/uL (0.1-1.30); MONOCYTES % (AUTO) 10.3 % (2.0-12.0); NEUTROPHILS # (AUTO) 10.9 K/uL (1.8-8.9); NEUTROPHILS % (AUTO) 70.5 % (43.0-81.0); PLATELET COUNT (AUTO) 357 K/uL (150-450); RED BLOOD CELL COUNT(AUTO) 4.76 MIL/uL (4.0-5.2); WHITE BLOOD COUNT (AUTO) 15.4 K/uL (4.3-11.0)
--- NOTE | 2022-01-08 06:51 | NUR ---
MS RN NOTES A/0 X4 ABLE TO MAKE NEEDS KNOWN NO RESPIRATORY DISTRESS NOTED AT THIS TIME TOLERATING ROOM AIR. PT KEPT NPO FOR NOW.CALL LIGHT WITHIN REACH. TABLE WITHIN REACH. WILL CONTINUE TO MONITOR. NO EPISODES OF N/V THROUGHOUT THE NIGHT. DID REPORT PAIN PAIN MEDICATION PROVIDED NEEDED. WILL ENDORSE CARE TO DAYSHIFT NURSE.
--- NOTE | 2022-01-08 07:30 | NUR ---
MS STEIN OPENING NOTES RECEIVED PATIENT ON BED AWAKE AND A/O X4. ON ROOM AIR TOLERATING WELL. NO SOB NOTED. NOT IN DISTRESS. WITH COMPLAINTS OF PAIN AT THE LEFT FOOT AT THE SCALE OF 7/10. COMFORT MEASURES PROVIDED. WITH IV ACCESS AT RIGHT AC G20 SALINE LOCKED, PATENT AND INTACT. WITH LEFT AV SHUNT FOR HEMODIALYSIS. SAFETY MEASURES IN PLACED. CALL LIGHT WITHIN REACH. BED ON LOWEST LOCKED POSITION, SIDE RAILS UP X2. WILL CONTINUE TO MONITOR. Addendum: 01/08/22 at 1336 by WONG MANLEY RN DOCUMENTED ON WRONG PATIENT.
--- NOTE | 2022-01-08 07:30 | NUR ---
MS RN OPENING NOTES RECEIVED PATIENT ON BED AWAKE AND A/O X4. ON ROOM AIR TOLERATING WELL. NO SOB NOTED. NOT IN DISTRESS. WITH COMPLAINTS OF ABDOMINAL PAIN AT 5/10. COMFORT MEASURES PROVIDED. WITH IV ACCESS AT RIGHT AC G20 WITH NS AT 75ML/HR INFUSING WELL. SAFETY MEASURES IN PLACED. CALL LIGHT WITHIN REACH. BED ON LOWEST LOCKED POSITION, SIDE RAILS UP X2. WILL CONTINUE TO MONITOR.
[2022-01-08] MEDS: PANTOPRAZOLE 40 MG TABLET.DR PO SCH (08:24)
[2022-01-08] MEDS ORDERED: POTASSIUM CHLORIDE 20 MEQ TAB.PRT.SR PO ONE (09:00)
[2022-01-08] MEDS: MORPHINE SULFATE INJ 2 MG/ML DISP.SYRIN IV PRN ×3 (09:48→23:51)
--- NOTE | 2022-01-08 10:00 | NUR ---
RN NOTES PATIENT REFUSED DVT PUMPS. PATIENT IS AMBULATORY.
[2022-01-08] MEDS ORDERED: FAMOTIDINE/PF INJ 20 MG/2 ML VIAL IV ONE (15:04)
[2022-01-08] MEDS ORDERED: MORPHINE SULFATE INJ 4 MG/ML DISP.SYRIN ONE (15:41)
[2022-01-08] MEDS ORDERED: ALBUTEROL FS 2.5 MG/3 ML VIAL.NEB ONE (16:07)
--- NOTE | 2022-01-08 18:28 | NUR ---
MS RN CLOSING NOTES PATIENT RESTING ON BED AND A/O X4. ON ROOM AIR TOLERATING WELL. NO SOB NOTED. NOT IN DISTRESS. WITH COMPLAINTS OF ABDOMINAL PAIN AT 5/10. COMFORT MEASURES PROVIDED. WITH IV ACCESS AT RIGHT AC G20 WITH NS AT 75ML/HR INFUSING WELL. DUE MEDS GIVEN. S/P EGD. SAFETY MEASURES IN PLACED. CALL LIGHT WITHIN REACH. BED ON LOWEST LOCKED POSITION, SIDE RAILS UP X2. WILL ENDORSE TO NEXT SHIFT FOR BRIANNE.
--- NOTE | 2022-01-08 19:30 | NUR ---
RN OPENING NOTES Patient is A&Ox4 resting in bed. No signs of cardiac or resp distress. However, patient does report that she is in severe abdominal pain that is sharp and burning. Told patient PRN morphine will be given when it is due very soon. Patient on clear liquids too much pain to advance diet at this time. Ambulation is steady again SBA on walk to bathroom. RAC #20G flushed and patent NS running at 75ml/hr. Will continue to monitor patient.
[2022-01-09] MEDS: MORPHINE SULFATE INJ 2 MG/ML DISP.SYRIN IV PRN ×5 (04:27→20:25)
--- NOTE | 2022-01-09 06:41 | NUR ---
RN CLOSING NOTES Patient is A&Ox4 sleeping but easy to wake. Did complain of severe sharp and burning upper-mid stomach pain. Only drank about 75cc of water but did not want more because it aggravated the stomach pain. Pain relieved by PRN Morphine. Tolerating IVF well good urine output clear yellow. No signs of distress currently. Safety measures in place.
[2022-01-09] MEDS: IV NS 0.9% 1,000 ML IV PRN ×2 (07:10→20:43)
[2022-01-09 07:16] LABS: CALCIUM, SERUM 8.8 mg/dL (8.5-10.1); CREATININE 0.7 mg/dL (0.6-1.3); POTASSIUM 3.6 mmol/L (3.5-5.1)
[2022-01-09 07:21] LABS: BASOPHILS # (AUTO) 0.1 K/uL (0.0-0.2); BASOPHILS % (AUTO) 0.8 % (0.0-2.0); HEMATOCRIT 40 % (33-45); HEMOGLOBIN 13.1 g/dL (11.5-14.8); LYMPHOCYTES # (AUTO) 2.8 K/uL (0.8-4.8); LYMPHOCYTES % (AUTO) 25.6 % (20.0-44.0); MEAN CORPUSCULAR HGB CONC 33 g/dl (31.0-36.0); MEAN CORPUSCULAR VOLUME 82 fL (82-100); MONOCYTES # (AUTO) 1.2 K/uL (0.1-1.30); MONOCYTES % (AUTO) 11.1 % (2.0-12.0); NEUTROPHILS # (AUTO) 6.4 K/uL (1.8-8.9); NEUTROPHILS % (AUTO) 59.5 % (43.0-81.0); PLATELET COUNT (AUTO) 315 K/uL (150-450); RED BLOOD CELL COUNT(AUTO) 4.87 MIL/uL (4.0-5.2); WHITE BLOOD COUNT (AUTO) 10.8 K/uL (4.3-11.0)
[2022-01-09] MEDS: PANTOPRAZOLE 40 MG TABLET.DR PO SCH ×3 (07:25→16:18)
--- NOTE | 2022-01-09 07:30 | NUR ---
RN MS NOTES PT IN BED, AWAKE, ALERT AND ORIENTED, NO COMPLAINT AT THIS TIME, RESPIRATIONS NORMAL, IV FLUIDS INFUSING WELL, CALL LIGHT WITHIN REACH, NEEDS ATTENDED.
[2022-01-09 08:00] VITALS: BP 169/93
--- NOTE | 2022-01-09 13:43 | NUR ---
SS Consult: SS consult for daily marijuana use. Pt. Is a 61-year-old female who demonstrates adequate insight to the reason for hospitalization. Per pt., he/she presented herself to hospital for Pt. was oriented x3, alert, and cooperative. During interview, pt. was capable of following directions, made appropriate eye-contact, and appeared groomed. Pt.s speech was at a normal rate and pt.s mood was elevated. Pt. reported no hx of mental health, denies suicidal ideation, or homicidal ideation. Pt. denies auditory hallucinations, visual hallucinations, paranoia, or delusions. SW explored pt.s substance abuse hx. Pt. denies using marijuana, pt. reported that she does not have a problem. SW explored pt.s living situation. Per pt., she lives with her sister [[address] [place] [address]. pt. did not know zip code]. Per pt., she reports having adequate support from family. Pt. sees a psychiatrist [Sherman] at [facility] [place] about 3 weeks ago and has been consistent. Pt. has been going through a rough time since the passing of her daughter. Pt. requested counseling outpatient resources; SW provided pt. with resources. Plan: SW provided available resources and pt. accepted. Upon discharge, per pt., she will return back home with family [[address] [place], [place]. pt. did not know zip code]. Resources Provided: Counseling--Outpatient [facility] [address] [facility] [place] [address] (Specializes in in-depth psychotherapy for emotional distress: anxiety, depression, interpersonal conflicts, life transitions, childhood abuse) [facility] [address] [place] [address] (Assist with solving problem marital difficulties, separation & divorce, aging parents, & grief, chronic & terminal illness) [facility] [address] [place] [address] (Deal with loss & grief, anxiety, marital difficulties) Homebound/[facility]ental Health [facility] [address] [facility] [address] [place] [address] (Provide in-home mental services to people who are incapable of leaving their homes) [facility] [address] [place], [place] [id number] [facility] [address] [place] [address] PSYCHIATRIC OUTPATIENT SERVICES [facility] Partial Hospitalization and Intensive Outpatient Program (Managed Care and [place] Only)[address] [facility] [phone] [facility] Partial Hospitalization and Outpatient [address] [place], [place] [phone] [facility] [place] [address] [place], [place] [phone] [facility] Partial Hospitalization and Outpatient O[address]wdry[address] [place], [phone] Substance Abuse resources provided included: [facility] Substance Abuse Self-Helpline ([facility]) ; [facility] [address] [facility] [place] [id number] ; [facility] [address] [facility] [address] ; [facility] [address] [address] ; [facility] [address] [facility] [address] ; [facility] [address] [facility] [address] ; [facility] [address] [facility] [address] ; [facility] Substance Abuse Helpline(SAS)-[facility] ; [facility] ; [facility] [place]; [facility] [place]; [facility] [place]; [facility] [place]; [facility] [place]; [facility]; [facility] [place]; [facility], [facility]. Shavonne Patel; Alcoholics Anonymous -[facility]; Ashish ; Marijuana Anonymous [facility]; Narcotics Anonymous www.na.org;
[2022-01-09 16:00] VITALS: BP 150/94
--- NOTE | 2022-01-09 18:23 | NUR ---
RN MS NOTES PT IN BED, AWAKE, ALERT AND ORIENTED, WATCHING TV, PAIN MEDS GIVEN ORDERED FOR ABDOMINAL PAIN. NO COMPLAINT OF NAUSEA BUT STILL UNABLE TO TOLERATE CLEAR LIQUID DIET, IV FLUIDS INFUSING WELL, ABLE TO AMBULATE TO THE BATHROOM WITH STEADY GAIT, CALL LIGHT WITHIN REACH, NEEDS ATTENDED.
--- NOTE | 2022-01-09 19:25 | NUR ---
MS RN OPENING NOTES RECEIVED PATIENT LAYING AWAKE IN BED. A/O X4. PATIENT WITH REGULAR AND UNLABORED BREATHING ON ROOM AIR TOLERATED WELL. NO SIGNS AND SYMPTOMS OF DISTRESS NOTED AT THIS TIME. NO COMPLAINS OF PAIN OR DISCOMFORT AT THIS TIME. IV ACCESS RAC G #20 INFUSING NS @75 ML/HR. IV ACCESS PATENT AND INTACT. SAFETY PRECAUTIONS ENFORCED WITH BED LOCKED AND AT LOWEST POSITION. CALL LIGHT WITHIN REACH AT ALL TIMES. WILL CONTINUE TO MONITOR PATIENT.
[2022-01-09 20:00] VITALS: BP 166/97
[2022-01-09] MEDS: TEMAZEPAM 15 MG CAPSULE PO PRN (22:13)
[2022-01-10] MEDS: MORPHINE SULFATE INJ 2 MG/ML DISP.SYRIN IV PRN ×6 (00:25→21:26)
[2022-01-10] MEDS: ONDANSETRON HCL/PF 4 MG/2 ML VIAL IVP PRN (04:53)
--- NOTE | 2022-01-10 06:56 | NUR ---
MS RN CLOSING NOTES PATIENT STILL LAYING AWAKE IN BED. A/O X4. PATIENT WITH REGULAR AND UNLABORED BREATHING ON ROOM AIR TOLERATED WELL. NO SIGNS AND SYMPTOMS OF DISTRESS NOTED AT THIS TIME. NO COMPLAINS OF PAIN OR DISCOMFORT AT THIS TIME. IV ACCESS RAC G #20 INFUSING NS @75 ML/HR. IV ACCESS PATENT AND INTACT. SAFETY PRECAUTIONS ENFORCED WITH BED LOCKED AND AT LOWEST POSITION. CALL LIGHT WITHIN REACH AT ALL TIMES. WILL ENDORSE CONTINUITY OF CARE TO DAY SHIFT NURSE.
--- NOTE | 2022-01-10 07:50 | NUR ---
RN OPENING NOTES Patient seen comfortably lying in bed, no shortness of breath, no apparent distress noted, breathing even and unlabored, no grimacing. Call light left within reach, safety precautions in place, brakes locked, side rails up X 2, will monitor closely for any changes.
[2022-01-10 08:00] VITALS: BP 146/93
[2022-01-10] MEDS: PANTOPRAZOLE 40 MG TABLET.DR PO SCH ×2 (08:58→16:16)
[2022-01-10] MEDS: IV NS 0.9% 1,000 ML IV PRN (11:03)
[2022-01-10 16:00] VITALS: BP 163/87
--- NOTE | 2022-01-10 16:00 | NUR ---
Patient was noted to have elevated temperature 102.5F orally and blood pressure of 163/87, heart rate 99, respirations 20, oxygen saturation 97% on room air. Hospitalist made aware with new orders to give Tylenol 650mg by mouth X 1 dose and to do blood culture X 2 15 mins apart, orders read back and verified with MD. Cooling measures provided to patient, ice packs provided, room temperature adjusted to a cooler setting. Patient reported no distress at this time, no dizziness, no palpitation, no chest pain, call light left within reach, will monitor closely for any changes.
[2022-01-10 16:30] VITALS: BP 150/70
--- NOTE | 2022-01-10 16:30 | NUR ---
Reassessed patients vital signs as follows: blood pressure: 150/70 pulse rate: 93 respiratory rate: 19 temperature:99.9F oxygen saturation:97 on room air. Patient seen comfortably lying in bed, no apparent distress noted, denies any pain or discomfort, respirations even and unlabored, no shortness of breath, no dizziness, no palpitations, no chest pain. Patient stated that she feels okay right now, reminded patient to press call light for assistance as needed, call light left within reach, will monitor closely for any changes.
[2022-01-10 17:00] VITALS: BP 142/63
--- NOTE | 2022-01-10 17:00 | NUR ---
Patient seen in bed with eyes closed, breathing even and unlabored, no apparent distress noted, no shortness of breath, no dizziness, no palpitations, no chest pain. Patient's vital signs as follows: blood pressure: 142/63, pulse rate: 88, respiratory rate: 18, temperature:98.9F, oxygen saturation:98 on room air. Call light left within reach, will monitor closely for any changes.
--- NOTE | 2022-01-10 18:23 | NUR ---
RN CLOSING NOTES Patient lying in bed, no shortness of breath, respirations even and unlabored, no dizziness, no palpitations, no chest pain. All due medications given per MD order and tolerated well. Pain medications given per MD order when non pharmacological measures ineffective. Patient has an order for IV fluids (NS at 75ml/hr) IV peripheral line on right antecubital covered with clean, intact and dry dressings and no swelling, no redness, no c/o pain or discomfort at site. Kept clean and dry, call light left within reach, all needs attended, aspiration precautions observed at all times, kept head of bed elevated, safety precautions in place, frequent visual checks rendered, brakes locked, side rails up X 2, will endorse to next shift for continuity of care.
--- NOTE | 2022-01-10 19:27 | NUR ---
RN OPENING NOTE RECEIVED PATIENT IN BED, AWAKE. NO S/S OF APPARENT DISTRESS IN ROOM AIR. NO C/O PAIN AT THIS TIME. NO C/O N/V. R. AC #20G RUNNING NS @75 CC/HR. SAFETY IN PLACE. WILL CONTINUE WITH PLAN OF CARE FOR PATIENT.
[2022-01-10 20:00] VITALS: BP 158/85
[2022-01-11] MEDS: MORPHINE SULFATE INJ 2 MG/ML DISP.SYRIN IV PRN ×5 (01:32→20:09)
[2022-01-11] MEDS: IV NS 0.9% 1,000 ML IV PRN ×2 (03:03→22:05)
[2022-01-11 06:20] LABS: BASOPHILS % (AUTO) 0.5 % (0.0-2.0); EOSINOPHILS % (AUTO) 0.2 % (0.0-6.0); HEMATOCRIT 36 % (33-45); HEMOGLOBIN 12.5 g/dL (11.5-14.8); LYMPHOCYTES # (AUTO) 0.9 K/uL (0.8-4.8); LYMPHOCYTES % (AUTO) 9.5 % (20.0-44.0); MEAN CORPUSCULAR HGB CONC 34 g/dl (31.0-36.0); MEAN CORPUSCULAR VOLUME 79 fL (82-100); MONOCYTES % (AUTO) 10.1 % (2.0-12.0); NEUTROPHILS # (AUTO) 7.8 K/uL (1.8-8.9); NEUTROPHILS % (AUTO) 79.7 % (43.0-81.0); PLATELET COUNT (AUTO) 245 K/uL (150-450); WHITE BLOOD COUNT (AUTO) 9.7 K/uL (4.3-11.0)
[2022-01-11 06:57] LABS: ALBUMIN 3.4 g/dL (3.4-5.0); BILIRUBIN,DIRECT 0.1 mg/dL (0.0-0.2); BILIRUBIN,TOTAL 0.3 mg/dL (0.2-1.0); CREATININE 0.6 mg/dL (0.6-1.3); POTASSIUM 3.1 mmol/L (3.5-5.1); TOTAL PROTEIN, SERUM 7.1 g/dL (6.4-8.2)
--- NOTE | 2022-01-11 07:03 | NUR ---
RN CLOSING NOTES NO SIGNIFICANT CHANGE WITH PATIENT. NEEDS ATTENDED. WILL ENDORSE TO MORNING SHIFT RN FOR CONTINUITY OF CARE.
[2022-01-11 07:08] LABS: CALCIUM, SERUM 8.6 mg/dL (8.5-10.1)
--- NOTE | 2022-01-11 07:45 | NUR ---
RN OPENING NOTES RECEIVED PATIENT IN BED, AWAKE. A/O 3-4. ON RA WITH NO S/SX OF RESP DISTRESS NOTED. NO C/O PAIN AT THIS TIME. NO C/O N/V. R AC G#20 INTACT AND PATENT RUNNING NS @75 ML/HR. SAFETY MEASURES IN PLACE: BED IN LOWEST POSITION, WHEELS LOCKED, SIDE RAILS UP X2, CALL LIGHT WITHIN REACH. WILL CONTINUE WITH PLAN OF CARE.
[2022-01-11 07:55] VITALS: BP 158/87
[2022-01-11] MEDS: PANTOPRAZOLE 40 MG TABLET.DR PO SCH (09:15)
[2022-01-11] MEDS: PANTOPRAZOLE 40 MG VIAL IV SCH ×2 (09:30→20:53)
--- NOTE | 2022-01-11 09:30 | NUR ---
RN NOTES PROTONIX MEDICATION WAS GIVEN PO BEFORE DISCONTINUED. PROTONIX IV MEDICATION WAS HELD AT THIS TIME.
[2022-01-11] MEDS ORDERED: POTASSIUM CHLORIDE 20 MEQ POWDER PACKET PO SCH (10:00)
--- NOTE | 2022-01-11 10:00 | NUR ---
RN NOTES R FA G#22 INFILTRATED. DISCONTINUED AND REMOVED.
--- NOTE | 2022-01-11 11:30 | NUR ---
RN NOTES ALEX MIDLINE IN PLACE G#20. FLUSHING WELL.
[2022-01-11] MEDS: ONDANSETRON HCL/PF 4 MG/2 ML VIAL IVP PRN ×2 (12:48→20:16)
[2022-01-11 16:03] VITALS: BP 144/83
--- NOTE | 2022-01-11 18:56 | NUR ---
RN CLOSING NOTES PATIENT IN BED, AWAKE. A/O 4. MINIMAL C/O N/V DURING THE MACHINE SETTER SHEET METAL. SUBSIDED LATER IN THE DAY/EVENING. ADVANCED PATIENT'S DIET TO REGULAR DIET AT DINNER TIME AND PATIENT IS TOLERATING OKAY WITH NO EMESIS. ALEX MIDLINE G#20 INTACT AND PATENT RUNNING NS @75 ML/HR. SAFETY MEASURES IN PLACE: BED IN LOWEST POSITION, WHEELS LOCKED, SIDE RAILS UP X2, CALL LIGHT WITHIN REACH. WILL ENDORSE TO DIVERSIFIED CROPS FARMER NURSE FOR BRIANNE
--- NOTE | 2022-01-11 19:15 | NUR ---
RN NOTE PT RESTING IN BED, EASILY AROUSABLE TO STIMULI. A/OX4. NO C/O PAIN AT THIS TIME. NO N/V NOTED. RESPIRATIONS EVEN/UNLABORED. IV SITE: ALEX ML INTACT/PATENT/FLUSHES WELL. PT IN NO ACUTE DISTRESS. SAFETY MEASURES IN PLACE. WILL CONT TO MONITOR.
[2022-01-11 20:00] VITALS: BP 140/70
[2022-01-12] MEDS: ONDANSETRON HCL/PF 4 MG/2 ML VIAL IVP PRN ×3 (03:01→18:15)
[2022-01-12] MEDS: MORPHINE SULFATE INJ 2 MG/ML DISP.SYRIN IV PRN ×4 (03:32→20:47)
[2022-01-12 06:50] LABS: CALCIUM, SERUM 8.5 mg/dL (8.5-10.1); CREATININE 0.6 mg/dL (0.6-1.3)
--- NOTE | 2022-01-12 06:50 | NUR ---
RN NOTE PT RESTING IN BED, EASILY AWAKENS TO STIMULI. PAIN WELL-CONTROLLED WITH PRN MORPHINE. PT IN NO ACUTE DISTRESS. SAFETY MEASURES MAINTAINED.
[2022-01-12 08:00] VITALS: BP 144/105
[2022-01-12] MEDS ORDERED: POTASSIUM CHLORIDE 20 MEQ TAB.PRT.SR PO ONE (09:00)
[2022-01-12] MEDS ORDERED: POTASSIUM CHLORIDE 20 MEQ TAB.PRT.SR PO SCH (09:00)
[2022-01-12] MEDS: PANTOPRAZOLE 40 MG VIAL IV SCH ×2 (09:04→20:33)
--- NOTE | 2022-01-12 09:24 | NUR ---
GIVEN ZOFRAN,MORPHINE,WAITED 20 MINUTES THEN SPLIT UP KDUR REPLACEMENT.HAD TOTAL OF 80 MEQ. KDUR.POTASSIUM LEVEL 3.0
--- NOTE | 2022-01-12 14:10 | NUR ---
MEDICATED FOR ABD. PAIN WITH MORPHINE.
[2022-01-12 16:09] VITALS: BP 132/75
[2022-01-12 16:48] LABS: CALCIUM, SERUM 8.4 mg/dL (8.5-10.1); CREATININE 0.7 mg/dL (0.6-1.3)
[2022-01-12] MEDS: IV NS 0.9% 1,000 ML IV PRN (18:15)
--- NOTE | 2022-01-12 18:24 | NUR ---
given zofran for nausea,just had emesis.states nause occurs every time she eats.
--- NOTE | 2022-01-12 19:10 | NUR ---
RN NOTE PT AWAKE IN BED, WATCHING TV. NO C/O N/V, NO C/O PAIN AT THIS TIME. PT DRINKING APPLE JUICE AND BANDAR WELL. RESPIRATIONS EVEN/UNLABORED. IV SITE: ALEX ML INTACT/PATENT, RUNNING NS @75ML/HR. PT IN NO ACUTE DISTRESS. SAFETY MEASURES IN PLACE. WILL CONT TO MONITOR.
[2022-01-12 20:00] VITALS: BP 124/74
--- NOTE | 2022-01-12 21:32 | NUR ---
RN NOTE RECEIVED CALL FROM LAB FOR BLOOD CX RESULT: GRAM+ COCCI IN CLUSTERS IN 3 OUT OF 4 BOTTLES. REPORTED TO ON-CALL
--- NOTE | 2022-01-12 21:45 | NUR ---
RN NOTE DNP GRICEL ORDERED FOR [facility]IN [facility]GM [facility]
[2022-01-12] MEDS ORDERED: VANCOMYCIN 1 GM VIAL ONE (22:25)
[2022-01-12] MEDS ORDERED: VANCOMYCIN 1 GM in IV D5W 260 ML IV ONE (22:30)
[2022-01-12] MEDS: TEMAZEPAM 15 MG CAPSULE PO PRN (23:42)
[2022-01-13] MEDS: MORPHINE SULFATE INJ 2 MG/ML DISP.SYRIN IV PRN ×3 (01:43→20:11)
--- NOTE | 2022-01-13 06:59 | NUR ---
RN NOTE PT RESTING IN BED, EASILY AROUSABLE TO STIMULI. A/OX4. PAIN WELL MANAGED WITH PRN MORPHINE. NO N/V NOTED DURING THE SHIFT. PT IN NO ACUTE DISTRESS. SAFETY MEASURES MAINTAINED.
[2022-01-13 07:21] LABS: BASOPHILS # (AUTO) 0.1 K/uL (0.0-0.2); EOSINOPHILS % (AUTO) 3.7 % (0.0-6.0); HEMATOCRIT 36 % (33-45); LYMPHOCYTES # (AUTO) 2.5 K/uL (0.8-4.8); LYMPHOCYTES % (AUTO) 21.6 % (20.0-44.0); MEAN CORPUSCULAR HGB CONC 33 g/dl (31.0-36.0); MEAN CORPUSCULAR VOLUME 80 fL (82-100); MONOCYTES # (AUTO) 1.8 K/uL (0.1-1.30); NEUTROPHILS # (AUTO) 6.6 K/uL (1.8-8.9); NEUTROPHILS % (AUTO) 57.7 % (43.0-81.0); PLATELET COUNT (AUTO) 157 K/uL (150-450); RED BLOOD CELL COUNT(AUTO) 4.55 MIL/uL (4.0-5.2); WHITE BLOOD COUNT (AUTO) 11.4 K/uL (4.3-11.0)
--- NOTE | 2022-01-13 07:45 | NUR ---
MS/RN OPENING NOTES RECEIVED PATIENT IN BED, ALERT AND ORIENTEDX4, ABLE TO MAKE NEEDS KNOWN. STABLE ON ROOM AIR. DISCOMFORTS REPORTED ON THE ABDOMINAL AREA. IV ACCESS ON LEFT UPPER ARM INTACT AND WITH A RUNNING IV NS @75ML/HR. SAFETY MEASURES IN PLACED: BED LOCKED ON LOWEST POSITION, SIDE RAILS UPX2, CALL LIGHT WITHIN EASY REACH. WILL CONTINUE WITH THE PLAN OF CARE.
[2022-01-13 08:16] VITALS: BP 107/61
[2022-01-13 08:32] LABS: CALCIUM, SERUM 8.6 mg/dL (8.5-10.1); CREATININE 0.6 mg/dL (0.6-1.3); POTASSIUM 3.9 mmol/L (3.5-5.1)
[2022-01-13] MEDS: PANTOPRAZOLE 40 MG VIAL IV SCH ×2 (09:14→20:58)
[2022-01-13] MEDS: VANCOMYCIN 1 GM in IV D5W 250 ML IV SCH ×2 (09:15→21:07)
[2022-01-13] MEDS: IV NS 0.9% 1,000 ML IV PRN (19:32)
--- NOTE | 2022-01-13 20:11 | NUR ---
RN NOTES : PT. C/O LEFT ABDOMINAL PAIN 05/15 ADMINISTERED MORPHINE PER MD ORDER. VS WNL. WILL CONTINUE TO MONITOR.
[2022-01-13 20:19] VITALS: BP 136/83
[2022-01-13] MEDS: TEMAZEPAM 15 MG CAPSULE PO PRN (22:38)
[2022-01-14] MEDS: MORPHINE SULFATE INJ 2 MG/ML DISP.SYRIN IV PRN ×4 (01:45→20:03)
--- NOTE | 2022-01-14 01:45 | NUR ---
RN NOTES : PT. C/O ABDOMINAL PAIN 06/15 ADMINISTERED MORPHINE PER MD ORDER. VS WNL. WILL CONTINUE TO MONITOR.
--- NOTE | 2022-01-14 06:46 | NUR ---
RN CLOSING NOTES PT. RESTING IN BED, ABLE TO MAKE NEEDS KNOWN. ON RA AND TOLERATING WELL. NO SOB NOTED NO S/SX OF RESPIRATORY DISTRESS NOTED.. ALL NEEDS MET. PT. KEPT CLEAN AND DRY. TREATED PAIN THROUGHOUT SHIFT. IV ACCESS INTACT ,SAFETY PRECAUTIONS IN PLACED CALL LIGHT WITHIN REACH. WILL ENDORSE TO ONCOMING SHIFT FOR BRIANNE.
[2022-01-14 08:00] VITALS: BP 134/74
[2022-01-14 08:21] LABS: CALCIUM, SERUM 8.9 mg/dL (8.5-10.1); CREATININE 0.7 mg/dL (0.6-1.3); POTASSIUM 3.6 mmol/L (3.5-5.1)
[2022-01-14] MEDS: PANTOPRAZOLE 40 MG VIAL IV SCH ×2 (09:12→20:05)
[2022-01-14] MEDS: VANCOMYCIN 1 GM in IV D5W 250 ML IV SCH ×2 (09:14→21:25)
[2022-01-14] MEDS: IV NS 0.9% 1,000 ML IV PRN (13:53)
[2022-01-14] MEDS: ONDANSETRON HCL/PF 4 MG/2 ML VIAL IVP PRN (14:13)
[2022-01-14 16:00] VITALS: BP 126/74
--- NOTE | 2022-01-14 18:32 | NUR ---
RN closing notes Patient resting in bed. Ambulated within unit. on RA. Not in distress. IV access intact. safety precaution in place. will endorse to oncoming RN for bhargav
--- NOTE | 2022-01-14 19:15 | NUR ---
RN NOTE PT AWAKE IN BED, WATCHING TV. A/OX4. NO PAIN, NO N/V AT THIS TIME. ON RA AND BANDAR WELL. RESPIRATIONS EVEN/UNLABORED. IV SITE: ALEX ML INTACT/PATENT, RUNNING NS @75ML/HR. PT IN NO ACUTE DISTRESS. SAFETY MEASURES IN PLACE. WILL CONT TO MONITOR.
[2022-01-14 20:00] VITALS: BP 156/83
[2022-01-14] MEDS: TEMAZEPAM 15 MG CAPSULE PO PRN (21:25)
[2022-01-15] MEDS: MORPHINE SULFATE INJ 2 MG/ML DISP.SYRIN IV PRN ×5 (01:03→22:15)
[2022-01-15 06:55] LABS: BASOPHILS # (AUTO) 0.1 K/uL (0.0-0.2); BASOPHILS % (AUTO) 1.1 % (0.0-2.0); EOSINOPHILS % (AUTO) 6.1 % (0.0-6.0); HEMATOCRIT 36 % (33-45); HEMOGLOBIN 12.1 g/dL (11.5-14.8); LYMPHOCYTES # (AUTO) 2.5 K/uL (0.8-4.8); LYMPHOCYTES % (AUTO) 32.4 % (20.0-44.0); MEAN CORPUSCULAR HGB CONC 33 g/dl (31.0-36.0); MEAN CORPUSCULAR VOLUME 80 fL (82-100); MONOCYTES % (AUTO) 12.4 % (2.0-12.0); NEUTROPHILS # (AUTO) 3.8 K/uL (1.8-8.9); PLATELET COUNT (AUTO) 236 K/uL (150-450); WHITE BLOOD COUNT (AUTO) 7.8 K/uL (4.3-11.0)
--- NOTE | 2022-01-15 07:23 | NUR ---
MS/RN OPENING NOTES RECEIVED PATIENT IN BED, ALERT AND ORIENTEDX4, ABLE TO MAKE NEEDS KNOWN. PATIENT IS BREATHING EVENLY AND NONLABORED STABLE ON ROOM AIR. NO SIGNS OF DISTRESS NOTED. DISCOMFORTS REPORTED ON THE ABDOMINAL AREA. IV ACCESS ON LEFT UPPER ARM INTACT AND WITH A RUNNING IV NS @75ML/HR. SAFETY MEASURES IN PLACED: BED LOCKED ON LOWEST POSITION, SIDE RAILS UPX2, CALL LIGHT WITHIN EASY REACH. WILL CONTINUE TO MONITOR
[2022-01-15 07:26] LABS: CALCIUM, SERUM 9.1 mg/dL (8.5-10.1); CREATININE 0.7 mg/dL (0.6-1.3); POTASSIUM 3.9 mmol/L (3.5-5.1)
[2022-01-15 08:00] VITALS: BP 164/90
[2022-01-15] MEDS: PANTOPRAZOLE 40 MG VIAL IV SCH ×2 (08:03→20:18)
[2022-01-15] MEDS: VANCOMYCIN 1 GM in IV D5W 250 ML IV SCH ×2 (09:12→22:02)
--- NOTE | 2022-01-15 10:52 | NUR ---
RN NOTE PATIENT STATED SHE CANNOT DO MRI DUE TO ANXIETY AND CLAUSTROPHOBIA, ORDERED ATIVAN 1MG PO X 1.
[2022-01-15] MEDS ORDERED: LORAZEPAM 1 MG TABLET PO ONE (11:00)
[2022-01-15 16:00] VITALS: BP 146/84
--- NOTE | 2022-01-15 18:36 | NUR ---
MS/RN CLOSING NOTES PATIENT IN BED, ALERT AND ORIENTED X4, ABLE TO MAKE NEEDS KNOWN. PATIENT IS BREATHING EVENLY AND NONLABORED STABLE ON ROOM AIR. NO SIGNS OF DISTRESS NOTED. DISCOMFORTS REPORTED ON THE ABDOMINAL AREA. IV ACCESS ON LEFT UPPER ARM INTACT AND WITH A RUNNING IV NS @75ML/HR. PATIENT COMPLAINED OF PAIN DURING SHIFT, PAIN MEDICATION WAS GIVEN ORDERED, VITALS MAINTAINED WNL. ALL MEDICATIONS GIVEN ORDERED. SAFETY MEASURES IN PLACED: BED LOCKED ON LOWEST POSITION, SIDE RAILS UPX2, CALL LIGHT WITHIN EASY REACH. WILL ENDORSE TO ONCOMING SHIFT
--- NOTE | 2022-01-15 19:30 | NUR ---
MS RN OPENING NOTE PATIENT AWAKE IN BED, ALERT/ORIENTED X 4, PATIENT ABLE TO MAKE NEEDS KNOWN. PATIENT DENIES PAIN AT THIS TIME. PT STABLE ON RA, NO S/S OF DISTRESS OR SOB NOTED, BREATHING EVEN AND UNLABORED. ALEX MIDLINE INTACT AND FLUSHING WELL, SALINE LOCKED, PT STATED SHE DOESN'T WANT IVF AT THIS TIME, DRINKING PLENTY OF FLUIDS. PATIENT IS AMBULATORY AND STEADY, BRP. WILL CONTINUE TO MONITOR PATIENT
[2022-01-15 20:00] VITALS: BP 140/75
[2022-01-15] MEDS: TEMAZEPAM 15 MG CAPSULE PO PRN (20:18)
--- NOTE | 2022-01-15 20:25 | NUR ---
MS RN NOTE PATIENT REQUESTED SLEEPING PILL, STATED SHE WANTS TO GO TO SLEEP ALREADY. RESTORIL 15 MG PO GIVEN ORDERED, WILL CONTINUE TO MONITOR PATIENT
[2022-01-16] MEDS: MORPHINE SULFATE INJ 2 MG/ML DISP.SYRIN IV PRN ×4 (03:56→20:02)
[2022-01-16 06:54] LABS: CALCIUM, SERUM 9.3 mg/dL (8.5-10.1); CREATININE 0.9 mg/dL (0.6-1.3); POTASSIUM 4.2 mmol/L (3.5-5.1)
--- NOTE | 2022-01-16 07:00 | NUR ---
MS RN CLOSING NOTE PATIENT AWAKE IN BED, ALERT/ORIENTED X 4, PATIENT ABLE TO MAKE NEEDS KNOWN. PT STABLE ON RA, NO S/S OF DISTRESS OR SOB NOTED, BREATHING EVEN AND UNLABORED. ALEX MIDLINE INTACT AND FLUSHING WELL, SALINE LOCKED. NO SIGNIFICANT CHANGES THROUGHOUT SHIFT, MEDICATIONS GIVEN ORDERED, PT NEEDS MET THROUGHOUT SHIFT. SAFETY MEASURES IN PLACE: CALL LIGHT WITHIN REACH, SIDE RAILS UP X 2, BED LOCKED IN LOWEST POSITION. WILL ENDORSE TO DAY SHIFT NURSE FOR CONTINUITY OF CARE
[2022-01-16 08:00] VITALS: BP 147/94
[2022-01-16] MEDS: PANTOPRAZOLE 40 MG VIAL IV SCH ×2 (08:12→20:02)
[2022-01-16] MEDS: VANCOMYCIN 1 GM in IV D5W 250 ML IV SCH ×2 (09:00→21:12)
--- NOTE | 2022-01-16 11:19 | NUR ---
RN NOTE PATIENT WENT FOR MRI, PATIENT STATED SHE CANNOT TOLERATE EVEN WITH ATIVAN, ADAMANTLY REFUSED TEST X2, EXPLAINED RISK AND BENEFITS STILL REFUSED
[2022-01-16 16:00] VITALS: BP 124/69
--- NOTE | 2022-01-16 19:30 | NUR ---
MS RN OPENING NOTES RECEIVED PATIENT LYING IN BED AWAKE. A/O X4. NOT IN APPARENT DISTRESS. STABLE IN ROOM AIR. BREATHING EVEN AND UNLABORED. NO C/O PAIN AT THIS TIME. HAS LEFT UPPER ARM MIDLINE WITH NS RUNNING AT 75 ML/HR. NO S/S OF INFILTRATION NOTED. SAFETY PRECAUTIONS IN PLACED. WILL CONTINUE PLAN OF CARE.
[2022-01-16 20:00] VITALS: BP 127/74
[2022-01-16] MEDS: IV NS 0.9% 1,000 ML IV PRN (23:47)
[2022-01-17] MEDS: MORPHINE SULFATE INJ 2 MG/ML DISP.SYRIN IV PRN ×5 (00:12→16:32)
--- NOTE | 2022-01-17 06:21 | NUR ---
2ND TRY FOR MRI , PATIENT REFUSING/SHE IS CLAUSTROPHOBIC.
--- NOTE | 2022-01-17 07:09 | NUR ---
MS RN CLOSING NOTES PATIENT LYING IN BED SLEEPING INTERMITTENTLY. PER PATIENT, SHE HAS INSOMNIA. A/O X4. STABLE ON ROOM AIR. NO ACUTE DISTRESS NOTED. NO C/O PAIN AT THIS TIME. PER PATIENT, MORPHINE HELPS FOR 2 HOURS AND SHE STARTS FEELING THE PAIN AGAIN. AMBULATORY WITH STEADY GAIT. HAS LEFT UPPER ARM MIDLINE WITH NS RUNNING AT 75 ML/HR. PATENT, INTACT AND FLUSHING. ABDOMEN SOFT AND NON-TENDER. ALL NEEDS ATTENDED. KEPT DRY AND COMFORTABLE. SAFETY PRECAUTIONS IN PLACED: BED LOW AND LOCKED, SIDE RAILS UP X2, CALL LIGHT WITHIN REACH.
[2022-01-17 07:42] LABS: CALCIUM, SERUM 8.6 mg/dL (8.5-10.1); CREATININE 0.7 mg/dL (0.6-1.3); POTASSIUM 4.1 mmol/L (3.5-5.1)
--- NOTE | 2022-01-17 07:50 | NUR ---
ms rn received on bed, awake,alert,oriented x4,not in any form of distress, respirations even and unlabored,no sob noted, lungs are clear,abdomen soft,positive bowel sounds,denies pain at this time,all needs attended.
[2022-01-17 08:00] VITALS: BP 139/85
[2022-01-17] MEDS: PANTOPRAZOLE 40 MG VIAL IV SCH (08:10)
--- NOTE | 2022-01-17 08:20 | NUR ---
ms shabazz breakfast served,due meds given,tolerated well.
[2022-01-17] MEDS ORDERED: SULF1TAB48 PO (09:13)
[2022-01-17] MEDS ORDERED: PANT40TA2 PO (09:13)
[2022-01-17] MEDS ORDERED: SUCR1TAB31 PO (09:14)
[2022-01-17] MEDS: VANCOMYCIN 1 GM in IV D5W 250 ML IV SCH (10:45)
[2022-01-17] MEDS ORDERED: LEVO750T46 PO (14:13)
[2022-01-17 16:00] VITALS: BP 140/79
--- NOTE | 2022-01-17 16:00 | NUR ---
ms rn called dr. jonas, patient is refusing ct spine and thorasic w/ contrast, says she needs to have it done in an outpatient open mri, elyssa is notified,all needs attended.
--- NOTE | 2022-01-17 17:30 | NUR ---
ms rn was discharge, accompanied br elyssa,all needs attended.
== END 2022-01-17 18:30 | disposition home or self-care (01) | DRG 243 ==
LOC: ER 13:39 → MED 18:54 → TELE 19:02 → MED 20:31
PROVIDERS: ADMIT Internal Medicine; ATTEND Internal Medicine
PROC: 0DJ08ZZ Inspection of Upper Intestinal Tract, Via Natural or Artificial Opening Endoscopic (ICD-10-PCS; principal; 2022-01-08)
PROC: 05HA33Z Insertion of Infusion Device into Left Brachial Vein, Percutaneous Approach (ICD-10-PCS; 2022-01-11)
DX: K20.90 Esophagitis, unspecified without bleeding (principal); B95.61 Methicillin susceptible Staphylococcus aureus infection as the cause of diseases classified elsewhere; E66.9 Obesity, unspecified; F17.200 Nicotine dependence, unspecified, uncomplicated; G89.29 Other chronic pain; I10 Essential (primary) hypertension; K31.89 Other diseases of stomach and duodenum; K57.90 Diverticulosis of intestine, part unspecified, without perforation or abscess without bleeding; Z20.822 Contact with and (suspected) exposure to COVID-19; Z88.0 Allergy status to penicillin; Z88.2 Allergy status to sulfonamides; Z88.8 Allergy status to other drugs, medicaments and biological substances; Z79.82 Long term (current) use of aspirin; Z79.899 Other long term (current) drug therapy; Z87.11 Personal history of peptic ulcer disease; Z98.891 History of uterine scar from previous surgery; K44.9 Diaphragmatic hernia without obstruction or gangrene; Z68.26 Body mass index [BMI] 26.0-26.9, adult; F12.188 Cannabis abuse with other cannabis-induced disorder; Z79.891 Long term (current) use of opiate analgesic; Z98.1 Arthrodesis status
CPT/HCPCS: 36410; 36415; 71045-TC; 80048-TC; 80076-TC; 80202-TC; 81001; 83690-TC; 83735-TC; 84100-TC; 84484-TC; 85025-TC; 86140-TC; 87040-TC; 87081-TC; 93307-TC; C9113; G0378; J0330; J1885; J2270; J2405; J2704; J3370; J3490; J7030; J7050; J7060